=== PATIENT | male | born 1990 | race Hispanic/Latino ===

== ENCOUNTER 2023-02-04 16:29 | Emergency (ER) | payer SELFPAY ==
[2023-02-04 16:45] VITALS: BP 155/92
[2023-02-04 17:00] VITALS: BP 143/81
[2023-02-04 17:15] VITALS: BP 142/92
[2023-02-04 17:30] VITALS: BP 136/92
[2023-02-04] MEDS ORDERED: PERCOCET 5/325M1 TAB PO ×2 (17:34→18:47)
[2023-02-04] MEDS ORDERED: KEFLEX500 MG PO ×2 (17:34→18:47)
[2023-02-04 17:46] VITALS: BP 131/82
[2023-02-04 17:48] VITALS: BP 131/82
== END 2023-02-04 17:52 | disposition home or self-care (01) | DRG 605 ==
LOC: ED 16:29
PROC: 0HQGXZZ Repair Left Hand Skin, External Approach (ICD-10-PCS; principal; 2023-02-04)
DX: S61.311A Laceration without foreign body of left index finger with damage to nail, initial encounter (principal); W23.0XXA Caught, crushed, jammed, or pinched between moving objects, initial encounter; Y92.89 Other specified places as the place of occurrence of the external cause; Y99.0 Civilian activity done for income or pay